=== PATIENT | male | born 1970 | race American Indian/Alaskan Native ===

== ENCOUNTER 2017-11-14 21:38 | Emergency (ER) | payer SELFPAY ==
[2017-11-14 22:52] VITALS: BP 145/100
[2017-11-14] MEDS ORDERED: NACL 0.9% 1000 ML 1,000 ML IV ONE (23:23)
[2017-11-14] MEDS ORDERED: ATIVAN IV ONE (23:24)
--- NOTE | 2017-11-14 23:32 | Emergency Department Report ---
HPI - General Chief Complaint: Anxiety Time Seen by Provider: 11/14/17 23:15 - HPI HPI: This is a 47-year-old male presents to the emergency department via EMS from [facility] with complaint of tachycardia, anxiety and some shortness of breath. Patient says that his heart rate got up to about 190 while at the facility. He admits to a diagnosed history of anxiety, PTSD. He is currently at this facility for paranoid delusions and hallucinations and psychosis but was sent in secondary to this tachycardia. He denies any medical conditions. He says that he is on Paxil, Invega and Lorazepam. It does not appear as if he received any medication this evening prior to presentation or in route. He denies any chest pain, fever, nausea, vomiting, back pain. ED Past Medical Hx - Past Medical History Previous Medical History?: Yes Hx Congestive Heart Failure: No Hx Diabetes: No Hx Seizures: Yes (04/2017) Hx Psychiatric Treatment: Yes (Depression and Schizophrenia-states he takes Lorazepam and Invega) Hx Asthma: No Hx COPD: No - Surgical History Past Surgical History?: Yes Additional Surgical History: cecal volvulus - Social History Smoking Status: Never Smoker Substance Use Type: None - Medications Home Medications: Home Medications Medication Instructions Recorded Confirmed Last Taken Type Diltiazem Cd [Cardizem Cd] 240 mg PO QDAY #30 cap 05/01/17 Unknown Rx LORazepam [Ativan] 0.5 mg PO Q8HR PRN #14 tablet 05/01/17 Unknown Rx Metoprolol [Lopressor TAB] 25 mg PO BID #60 tablet 05/01/17 Unknown Rx Sertraline HCl [Zoloft] 50 mg PO DAILY #30 tablet 05/01/17 Unknown Rx oxyCODONE /ACETAMINOPHEN [Percocet 1 tab PO Q6H PRN #14 tablet 05/01/17 Unknown Rx 5/325 mg] ED Review of Systems ROS: Stated complaint: TACHYCARDIA Other details as noted in HPI Comment: All other systems reviewed and negative Constitutional: denies: chills, fever Eyes: denies: eye pain, eye discharge, vision change ENT: denies: ear pain, throat pain Respiratory: shortness of breath. denies: cough Cardiovascular: palpitations. denies: chest pain Gastrointestinal: denies: abdominal pain, nausea, diarrhea Genitourinary: denies: urgency, dysuria Musculoskeletal: denies: back pain, joint swelling, arthralgia Skin: denies: rash, lesions Neurological: denies: headache, weakness, paresthesias Psychiatric: anxiety Physical Exam - Physical Exam Vital Signs: Vital Signs 11/14/17 22:47 Temperature 97.3 F L Pulse Rate 142 H Respiratory 20 Rate Blood Pressure 145/100 O2 Sat by Pulse 98 Oximetry Physical Exam: GENERAL: The patient is well-developed well-nourished. HENT: Normocephalic. Atraumatic. Patient has moist mucous membranes. EYES: Extraocular motions are intact. Pupils equal reactive to light bilaterally. NECK: Supple. Trachea is midline. CHEST/LUNGS: Clear to auscultation. There is some tachypnea but no accessory muscle use. There is no respiratory distress noted. HEART/CARDIOVASCULAR: Regular. There is moderate tachycardia. There is no murmur. ABDOMEN: Abdomen is soft, nontender. Patient has normal bowel sounds. There is no abdominal distention. SKIN: Skin is warm and dry. NEURO: The patient is awake, alert, and oriented. The patient is cooperative. The patient has no focal neurologic deficits. The patient has normal speech. MUSCULOSKELETAL: There is no tenderness or deformity. There is no limitation range of motion. There is no evidence of acute injury. PSYCH: Patient appears very anxious. ED Course Vital Signs 11/14/17 22:47 Temperature 97.3 F L Pulse Rate 142 H Respiratory 20 Rate Blood Pressure 145/100 O2 Sat by Pulse 98 Oximetry ED Medical Decision Making - Lab Data Result diagrams: 11/14/17 23:41 11/14/17 23:41 - EKG Data -: EKG Interpreted by Ma EKG shows normal: sinus rhythm, axis, intervals, QRS complexes, ST-T waves Rate: tachycardia (118 bpm) - EKG Data When compared to previous EKG there are: previous EKG unavailable Interpretation: other (sinus tachycardia at 118 bpm) - Radiology Data Radiology results: report reviewed CT angiography of the chest shows no evidence of pulmonary embolus, aortic dissection or vascular congestion. Aneurysmal dilatation of the ascending aorta measuring 3.9 cm in diameter. No acute process of the chest. - Medical Decision Making Patient came in to be evaluated for tachycardia and was having some anxiety, shortness of breath. He did come in with a heart rate of about 150 which was improved almost immediately as the EKG done upon presentation was at 118 bpm. He was given IV fluid and a dose of Ativan for his anxiety. Labs were mostly unremarkable except for an elevated d-dimer. He had a negative troponin and a normal thyroid function. Secondary to the elevated d-dimer the patient had a CT angiography of the chest that showed a ascending thoracic aortic aneurysm of 3.8 cm but otherwise no pulmonary embolism, dissection or any acute process. Patient was reevaluated multiple times for multiple hours and was often sleeping and/or resting comfortably. The patient had some resistance to returning to [facility] but eventually relented when he realized that he was not a voluntary admission there. The patient was given discharge paperwork that included a referral for cardiology for outpatient follow-up regarding his tachycardia, as well as a referral for cardiothoracic surgery so that someone can follow up regarding his thoracic aortic aneurysm. He was encouraged to return to the emergency department immediately with any worsening of his symptoms or any acute distress. - Differential Diagnosis SVT, hyperthyroidism, PE, anxiety Critical Care Time: No Critical care attestation.: If time is entered above; I have spent that time in minutes in the direct care of this critically ill patient, excluding procedure time. ED Disposition Clinical Impression: Tachycardia Aortic aneurysm Qualifiers: Aortic location: thoracic aorta Presence of rupture: without rupture Qualified Code(s): I71.2 - Thoracic aortic aneurysm, without rupture Disposition: DC-01 TO HOME OR SELFCARE Is pt being admited?: No Condition: Stable Instructions: Thoracic Aortic Aneurysm (ED) Additional Instructions: He was seen today for your tachycardia that caused some shortness of breath. This appears to have resolved. During her workup, you are found to have a 3.9 cm descending thoracic aneurysm on CT scan. This does not need any emergent intervention but you will need to follow up with a cardiothoracic surgeon to follow this. I have also given you a referral for a local senior database programmer, Dr. Lambert, to follow up regarding her tachycardia. Return to the emergency Department with any worsening of your symptoms or any acute distress. Referrals: ROBBIE LOPEZ MD [Primary Care Provider] - 3-5 Days POONAM LAMBERT MD [Staff Physician] - 3-5 Days DEVANG ROMERO MD [Referring] - 3-5 Days Time of Disposition: 04:22
[2017-11-14 23:56] LABS: Basophils % (Auto) 0.4 % (0.0-1.8); Hemoglobin 14.3 gm/dl (11.8-15.2); Lymphocytes % (Auto) 12.5 % (13.4-35.0); Monocytes # (Auto) 0.8 K/mm3 (0.0-0.8); Monocytes % (Auto) 10.4 % (0.0-7.3)
[2017-11-15 00:13] LABS: BUN/Creatinine Ratio 7; Blood Urea Nitrogen 9 mg/dL (9-20); Calcium 9.2 mg/dL (8.4-10.2); Hemolysis Index 18
[2017-11-15 00:35] LABS: Hematocrit 42.9 % (35.5-45.6); Mean Corpuscular HGB Conc 33 % (32-34); Mean Corpuscular Hemoglobin 27 pg (28-32); Mean Corpuscular Volume 83 fl (84-94); Platelet Count 232 K/mm3 (140-440); Red Blood Count 5.19 M/mm3 (3.65-5.03); Red Cell Distribution Width 14.2 % (13.2-15.2)
--- NOTE | 2017-11-15 09:00 | Cat Scan Report ---
FINAL REPORT EXAM: CT ANGIO CHEST HISTORY: tachycardia, SOB, elevated dimer TECHNIQUE: A CT angiogram was performed following the intravenous injection of iodinated contrast. MIP sagittal and coronal reconstructions were reviewed. Comparison is made study of 04/27/2017. FINDINGS: There is no evidence of pulmonary embolus or aortic dissection. There is aneurysmal dilatation of the ascending aorta which measures 3.9 cm in diameter. There is no evidence of adenopathy. The heart size is normal. Pericardial fluid is not seen. The lungs are clear. There is no evidence of congestion or pleural effusion. 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 In the upper abdomen there is a small hiatal hernia. The adrenal glands appear normal. IMPRESSION: No evidence of pulmonary embolus, aortic dissection, or vascular congestion. Aneurysmal dilatation of the ascending aorta measuring 3.9 cm in diameter. No acute process in the chest.
== END 2017-11-15 04:35 | disposition home or self-care (01) ==
LOC: ED 21:38
DX: I71.9 Aortic aneurysm of unspecified site, without rupture (principal); R00.0 Tachycardia, unspecified; F41.9 Anxiety disorder, unspecified; F32.9 Major depressive disorder, single episode, unspecified; F20.9 Schizophrenia, unspecified
CPT/HCPCS: 36415; 71275; 80048; 84443; 84484; 85025; 85379; 93005; 93010; 96361; 96374; 99284; J2060; J7030; Q9967